=== PATIENT | male | born 1985 | race Caucasian/White ===

== ENCOUNTER 2018-08-09 20:31 | Emergency (ER) | payer OTHER ==
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
--- NOTE | 2018-08-09 21:29 | CR ---
Indication: Injury and pain Technique: Right elbow 3 views Comparison: None Findings: Bones: Alignment is normal. No fractures or bone lesions. Joint spaces: Unremarkable. No sign of joint effusion. Soft tissues: Unremarkable. Impression: Unremarkable right elbow series. Dictated by Roberto Espinosa MD @ Aug 09 2018 9:25PM Signed by Dr. Roberto Espinosa @ Aug 09 2018 9:27PM
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
--- NOTE | 2018-08-09 21:41 | CR ---
Indication: Injury and pain Technique: Right wrist 3 view Comparison: None Findings: Bones: Alignment is normal. No fractures or bone lesions. Joint spaces: Unremarkable. Soft tissues: Unremarkable. Impression: No sign of acute injury in the right wrist. Dictated by Roberto Espinosa MD @ Aug 09 2018 9:39PM Signed by Dr. Roberto Espinosa @ Aug 09 2018 9:40PM
== END 2018-08-09 21:44 | disposition home or self-care (01) ==
LOC: MW.ED 20:31
DX: S49.91XA Unspecified injury of right shoulder and upper arm, initial encounter (principal); Z91.018 Allergy to other foods; V20.0XXA Motorcycle driver injured in collision with pedestrian or animal in nontraffic accident, initial encounter
CPT/HCPCS: 73030-26-RT; 73030-RT; 73080-26-RT; 73080-RT; 73110-26-RT; 73110-RT; 99283